=== PATIENT | male | born 1950 | race Caucasian/White ===

== ENCOUNTER → 2017-12-31 09:07 | Outpatient (CLI) | payer MEDICARE, SELFPAY | PROVIDERS: PCP Family Medicine; Visit Provider Family Medicine | DX: R07.9 Chest pain, unspecified (principal); I10 Essential (primary) hypertension | CPT/HCPCS: 93017 ==

== ENCOUNTER → 2018-02-10 10:05 | Outpatient (CLI) | payer MEDICARE, SELFPAY ==
--- NOTE | 2018-02-10 10:09 | CT_ITS ---
CT heart w calcium score INDICATION: Chest pain ITS.REASON: abnormal stress test ORDERING PHYSICIAN: Magdi Michaud MD PATIENT AGE: 67 years COMPARISON: None TECHNIQUE: Axial images are obtained without contrast. Sagittal and coronal reformatted images are reviewed as well. All CT scans at the facility use one or more dose reduction, viz: automated exposure control, ma/kV adjustment per patient size (including targeted exams where dose is matched to indication, i.e. head), or iterative reconstruction technique. FINDINGS: The coronary artery calcium score is 0 indicating low cardiovascular disease risk Incidental note is made of a left adrenal nodule which measures 3 x 2.7 cm. The nodule is indeterminate based on its density of nearly 13 Hounsfield units. If there are any old CTs available is suggest that they be compared treated no old CTs are available then follow-up exam without and with contrast or peripherally MRI may be of further value to determine if the nodule represents an adenoma. IMPRESSION: 1. Coronary artery calcium score is 0 with low cardiovascular disease risk. 2. Indeterminate left adrenal nodule at 3 x 2.7 cm
--- NOTE | 2018-02-10 10:09 | CA_ITS ---
PROCEDURE: 2-D M-mode and color Doppler study INDICATIONS FOR THE TEST: Chest pain + COPD Heart Murmur Tobacco Smoking Palpitations Fatigue Syncope Edema Hypertension Diabetes Mellitus Rheumatic Fever SOB BARTON Obesity Hyperlipidemia Family History HD Additional History PATIENT INFORMATION HEIGHT: 70 WEIGHT:162 GENDER: M B/P:155/58 2-D/M-MODE INTERPRETATION: 2-D MEASUREMENTS OBSERVED VALUES IN CMS Right Ventricular Dimension (RVDd) 2.5 Interventricular Septum (Thickness)(IVsd) 1.1 Left Ventricular Internal Dimensions(LVIDd) 5.5 Left Ventricular Posterior Wall (Thickness)(LVPWd) 0.9 Aortic Root 2.8 Aortic Cusp Separation 2.1 Left Atrial Dimensions (LAD) 3.7 2D 1. Left atrium is normal size, left ventricle is normal size, there is no concentric left ventricular hypertrophy, visually estimated ejection fraction 55% with no obvious regional wall motion abnormality. 2. The right atrium and right ventricle are normal size and contractility. 3. The aortic valve is minimally thickened and fibrosed. 4. 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 5. The tricuspid valve is grossly normal. 6. The pulmonic valve is poorly visualized. 7. No significant pericardial effusion noted. DOPPLER INTERROGATION: Doppler interrogation of the aortic, mitral and tricuspid valvular presence of mild to moderate mitral and mild tricuspid regurgitation, tricuspid regurgitation jet velocity is insufficient for calculation of the right ventricular systolic pressure, diastolic parameters are inconclusive. CONCLUSION: 1. Normal left ventricular size, preserved left ventricular systolic function, visually estimated ejection fraction 55% with no obvious regional wall motion abnormality, diastolic parameters are inconclusive. 2. 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 Mild tricuspid regurgitation 4. No significant pericardial effusion noted.
== END ==
PROVIDERS: PCP Family Medicine; Visit Provider Internal Medicine
DX: R07.9 Chest pain, unspecified (principal); R94.39 Abnormal result of other cardiovascular function study; R00.1 Bradycardia, unspecified
CPT/HCPCS: 75571; 93306

== ENCOUNTER → 2018-02-17 10:49 | Outpatient (CLI) | payer MEDICARE, SELFPAY ==
[2018-02-17 13:45] LABS: Anion Gap 11.6 mEq/L (5-15); Blood Urea Nitrogen 15 mg/dL (7-18); Carbon Dioxide 30 mmol/L (21.0-32.0); Chloride 107 mmol/L (98-107); Creatinine,Serum 1.16 mg/dL (0.70-1.30); Estimated Glomerular Filt Rate 63 ml/min (>60); GFR (African American) 76 ML/MIN (>60); Glucose 101 mg/dL (74-106); Potassium 4.6 mmoL/L (3.5-5.1); Sodium 144 mmol/L (136-145)
== END ==
PROVIDERS: PCP Family Medicine; Visit Provider Internal Medicine
DX: I10 Essential (primary) hypertension (principal); E27.9 Disorder of adrenal gland, unspecified; I34.0 Nonrheumatic mitral (valve) insufficiency
CPT/HCPCS: 36415; 80048; 82088

== ENCOUNTER → 2018-02-26 10:04 | Outpatient (CLI) | payer MEDICARE, SELFPAY ==
--- NOTE | 2018-02-26 10:09 | CT_ITS ---
CT abdomen wo/w con CLINICAL INDICATION: Possible adrenal tumor. Left adrenal mass seen on recent CT scan ITS.REASON: adrenal nodule ORDERING PHYSICIAN: Magdi Michaud MD PATIENT AGE: 67 years COMPARISON: None TECHNIQUE: Axial images obtained without and with contrast. Unenhanced exam as well as 60 seconds and 15 minute delayed images are obtained following contrast administration Axial images obtained with sagittal and coronal reformats. All CT scans at the facility use one or more dose reduction, viz: automated exposure control, ma/kV adjustment per patient size (including targeted exams where dose is matched to indication, i.e. head), or iterative reconstruction technique. PROCEDURE: Oral Contrast: None IV Contrast: 75 mL of Isovue-370.. FINDINGS: 3.6 x 3 cm left adrenal mass is present. Unenhanced density ranges from -3-8 Hounsfield units. There is no significant enhancement on the immediate and delayed images. The right adrenal gland has an unremarkable appearance. The liver, gallbladder, spleen, pancreas, and kidneys have an unremarkable appearance. No acute bony anomalies. No intestinal obstruction or free air. Unremarkable appendix. IMPRESSION: 3.6 x 3 cm left adrenal mass likely representing an adenoma. Suggest 6 month follow-up unenhanced CT scan.
== END ==
PROVIDERS: PCP Family Medicine; Visit Provider Internal Medicine
DX: E27.9 Disorder of adrenal gland, unspecified (principal); R94.39 Abnormal result of other cardiovascular function study; R00.1 Bradycardia, unspecified; I10 Essential (primary) hypertension
CPT/HCPCS: 74170; Q9967

== ENCOUNTER → 2018-03-27 08:24 | Outpatient (CLI) | payer MEDICARE, SELFPAY ==
--- NOTE | 2018-03-27 08:26 | MR_ITS ---
MR abdomen wo/w con INDICATION: Follow-up left adrenal mass ITS.REASON: adrenal mass with and without contrast ORDERING PHYSICIAN: Magdi Michaud MD PATIENT AGE: 67 years COMPARISON: 02/26/2018 TECHNIQUE: Multiplanar multiecho sequences performed without and with contrast. In and out of phase imaging performed. FINDINGS: 3.1 x 2.8 cm left adrenal nodule once again noted. This is isointense on the T1-weighted images and hyperintense on T2-weighted images. There is little if any contrast enhancement. The out of phase images show slight signal dropout.. This along with the fact that the lesion measures less than 10 Hounsfield units on the unenhanced CT scan is consistent with an adrenal adenoma. IMPRESSION: Left adrenal lesion is felt to represent an adenoma. Suggest 6 month follow-up unenhanced CT scan to confirm stability
[2018-03-27 09:20] LABS: Blood Urea Nitrogen 14 mg/dL (7-18); Creatinine,Serum 1.07 mg/dL (0.70-1.30); Estimated Glomerular Filt Rate 69 ml/min (>60); GFR (African American) 84 ML/MIN (>60)
== END ==
PROVIDERS: PCP Family Medicine; Visit Provider Internal Medicine
DX: E27.9 Disorder of adrenal gland, unspecified (principal); I10 Essential (primary) hypertension; I34.0 Nonrheumatic mitral (valve) insufficiency
CPT/HCPCS: 36415; 74183; 82565; 84520; A9576

== ENCOUNTER → 2019-04-06 15:02 | Outpatient (CLI) | payer MEDICARE, SELFPAY ==
--- NOTE | 2019-04-06 15:04 | CA_ITS ---
[facility] RADIOLOGICAL CONSULTATION Patient Name : Kong Perez X-RAY # : [id number] Physician: JAKY THOMAS AGE: 68Y : 1950 00:00:00 ( M ) Exam : CA ECHO DOPPLER COMPLETE ACC # : [id number] Study Date : 04/06/2019 15:14:32 Patient Class : O FINAL REPORT CLINICAL DATA: FINDINGS: TRANSCRIBED REPORT EXAM: Comprehensive 2D, Doppler, and color-flow Echocardiogram Compensation Administrator: Suha Skinner RT(R) Ht: 5 ft 10 in Wt: 150lbs BSA: 1.85 BP: 143/75 mmHg Indications: MVP, HTN, Hyperlipidemia 2D Dimensions Aortic Root 2.60 cm M: 3.1 - 3.7 Left Atrium 3.50 cm M: 3.0 - 4.0 LVOT 2.02 cm (M/F) 1.5-2.5 M-Mode Dimensions RVDd 1.88 cm (0.9-2.6) LVDd 4.30 cm (3.5-5.7) LVDs 3.06 cm (3.5-5.7) IVSd 1.28 cm (0.6-1.1) PWd 1.01 cm (0.6-1.1) EF (Teich) 55.80% FS 28.80% EDV (Teich) 83.10 mL ESV (Teich) 36.70 mL LV Diastology E/A Ratio 1.23 Mitral Valve MV A Velocity 71.00 (40-130 cm/s) Electronically signed by : IMPRESSION: Dictated by at Transcribed by at
== END ==
PROVIDERS: PCP Family Medicine; Visit Provider Internal Medicine
DX: I10 Essential (primary) hypertension (principal); I34.1 Nonrheumatic mitral (valve) prolapse
CPT/HCPCS: 93306

== ENCOUNTER → 2019-12-20 08:06 | Outpatient (CLI) | payer MEDICARE, SELFPAY ==
[2019-12-20 10:02] LABS: Blood Urea Nitrogen 18 mg/dl (9-20); Estimated Glomerular Filt Rate 67 ml/min (>60); GFR (African American) 81 ML/MIN (>60)
== END ==
PROVIDERS: Visit Provider Internal Medicine Cardiovascular Disease
DX: E27.9 Disorder of adrenal gland, unspecified (principal); E78.5 Hyperlipidemia, unspecified; I10 Essential (primary) hypertension; I34.1 Nonrheumatic mitral (valve) prolapse; R07.9 Chest pain, unspecified
CPT/HCPCS: 36415; 82565; 84520

== ENCOUNTER → 2019-12-21 09:30 | Outpatient (CLI) | payer MEDICARE, SELFPAY ==
--- NOTE | 2019-12-21 09:31 | CT_ITS ---
PROCEDURE: CT ABDOMEN WO/W CON CLINICAL HISTORY: lesion of adrenal gland Follow-up adrenal lesion, left adrenal nodule COMPARISON: ABDWW CT abdomen wo/w con from 02/26/2018 TECHNIQUE: 75 mL Optiray 350 IV Axial images obtained with sagittal and coronal reformats. All CT scans at the facility use one or more dose reduction, viz: automated exposure control, ma/kV adjustment per patient size (including targeted exams where dose is matched to indication, i.e. head), or iterative reconstruction technique. FINDINGS: Pre and post enhanced images are obtained Left adrenal nodule is once again noted at 2.5 cm. Unenhanced density is 4 Hounsfield units with mediate post enhanced density 6 Hounsfield units and 15 minutes delayed density 16 Hounsfield units. There has been overall no significant change since 02/26/2018 consistent with an adrenal adenoma. The right adrenal gland has an unremarkable appearance. The liver, pancreas, gallbladder, and kidneys have an unremarkable appearance. On the most superior post enhanced images there is a 4 mm area of decreased attenuation of the spleen posteriorly nonspecific. No acute bony findings. IMPRESSION: No change left adrenal nodule consistent with an adenoma Dictated by: Grover Rodriguez MD 12/22/2019 11:26 Electronically signed by Grover Rodriguez MD in [place] 12/22/2019 11:26
== END ==
PROVIDERS: PCP Family Medicine; Visit Provider Urology
DX: E27.9 Disorder of adrenal gland, unspecified (principal); E78.2 Mixed hyperlipidemia; I10 Essential (primary) hypertension; I34.1 Nonrheumatic mitral (valve) prolapse; R07.9 Chest pain, unspecified
CPT/HCPCS: 74170; Q9967

== ENCOUNTER → 2020-12-21 12:47 | Outpatient (CLI) | payer MEDICARE, SELFPAY | PROVIDERS: PCP Family Medicine; Visit Provider Urology | DX: E27.9 Disorder of adrenal gland, unspecified (principal); E78.2 Mixed hyperlipidemia; I10 Essential (primary) hypertension; I34.1 Nonrheumatic mitral (valve) prolapse | CPT/HCPCS: 93306 ==

== ENCOUNTER → 2021-06-19 09:01 | Outpatient (CLI) | payer MEDICARE, SELFPAY ==
--- NOTE | 2021-06-19 09:01 | CT_ITS ---
FINAL REPORT CLINICAL HISTORY: left adrenal nodule follow up FINDINGS: The lung bases are clear. The liver is normal in size and attenuation. The spleen is unremarkable. There is a 2.4 x 2.2 cm left adrenal nodule. This nodule demonstrates 8 Hounsfield units pre-contrast, 13 Hounsfield units on postcontrast imaging and 20 Hounsfield units on delayed imaging. This is indeterminate based on CT criteria. The pancreas is unremarkable. The kidneys enhance appropriately. Precontrast images demonstrate no nephrolithiasis. IMPRESSION: Indeterminate left adrenal nodule. Recommend follow-up CT to document stability or an MRI with in and out of phase imaging. Reviewed, Interpreted and Dictated by Jeremy Garnett MD Transcribed by Kyle Gama Authenticated by Jeremy Garnett MD on 06/19/2021 12:13:42 PM [facility]
[2021-06-19 09:26] LABS: Blood Urea Nitrogen 16 mg/dl (9-20); Estimated Glomerular Filt Rate 67 ml/min (>60); GFR (African American) 81 ML/MIN (>60)
== END ==
PROVIDERS: PCP Family Medicine; Visit Provider Urology
DX: E27.9 Disorder of adrenal gland, unspecified (principal)
CPT/HCPCS: 36415; 74178; 82565; 84520; Q9967

== ENCOUNTER → 2023-01-22 09:26 | Outpatient (CLI) | payer MEDICARE, SELFPAY ==
--- NOTE | 2023-01-22 09:30 | CA_ITS ---
APPROVED REPORT EXAM: Comprehensive 2D, Doppler, and color-flow Echocardiogram Owner Oral Surgeon: Violet Arguelles CRT Ht: 5 ft 10 in Wt: 157lbs BSA: 1.88 BP: 142/88 mmHg Indications: MVP, BRADYCARDIA, HTN, HLD, SOB 2D Dimensions LVOT 1.93 cm (M/F) 1.5-2.5 LA Volume 34.20 mL LA Volume Index 18.204332 mL/m2 (M/F) 16-34 M-Mode Dimensions RVDd 2.79 cm (0.9-2.6) LA Diam 3.34 cm (1.9-4.0) LVDd 4.79 cm (3.5-5.7) Ao Diam 3.30 cm (2.0-3.7) LVDs 3.39 cm (3.5-5.7) IVSd 1.18 cm (0.6-1.1) PWd 0.96 cm (0.6-1.1) EF (Teich) 56.00% FS 29.20% EDV (Teich) 107.00 mL TAPSE 2.74 (<1.7) ESV (Teich) 47.10 mL LV Diastology E Decel Time 177.00 (160-240 msec) E/A Ratio 0.68 MED E' 8.60 (< 7 cm/sec) MED A' 13.00 cm/s E'/MED E' Ratio 7.78 (>14) LAT E' 9.30 (<10 cm/sec) LAT A' 10.00 cm/s E/LAT E' Ratio 7.19 (>14) Aortic Valve LVOT Max 161.00 (70-110 cm/s) LVOT VTI 35.53 cm AoV Peak Jaret. 196.00 (50-130 cm/s) AO Peak GR. 15.40 mmHg AO Mean GR. 9.20 (<5 mmHg) AO VTI 40.86 (18-25 cm) JASMINA (VTI) 2.54 (2.5-4.5 cm2) Mitral Valve MV A Velocity 98.00 (40-130 cm/s) E/A Ratio 0.68 MV Decel. Time 177.00 (160-240 ms) Tricuspid Valve TR P. Velocity 263.00 cm/s RAP Estimate 10.00 mmHg RVSP 37.80 mmHg Left Ventricle The left ventricle is normal size. The left ventricular systolic function is normal. The left ventricular ejection fraction is within the normal range. There is normal left ventricular wall thickness. There is no LVOT obstruction at rest. There is normal LV segmental wall motion. Transmitral Doppler flow pattern suggests impaired LV relaxation. LVEF is 65%. Right Ventricle The right ventricle is mildly dilated. The right ventricular systolic function is normal. Atria The left atrium size is normal. The right atrium size is normal. There is no Doppler evidence of interatrial shunt. Aortic Valve The aortic valve leaflets are mildly thickened. There is no aortic valvular stenosis. No aortic regurgitation is present. Mitral Valve There is mild prolapse of the posterior MV leaflet. No evidence of mitral annular disjunction (MAD). Chordal systolic anterior motion (TY) is present. No evidence of septal contact. No evidence of mitral valve stenosis. Trace mitral regurgitation. Tricuspid Valve The tricuspid valve leaflets are thin and pliable. Trace tricuspid regurgitation. RVSP is normal. Pulmonic Valve The pulmonary valve is normal in structure. Trace pulmonic regurgitation. Great Vessels The aortic root is normal in size. The visualized segment of the ascending aorta is normal in size. IVC is normal in size and collapses >50% with inspiration. Pericardium There is no pericardial effusion. Other Information Study Quality: Adequate Conclusion Normal biventricular systolic function. Mild RV dilation. Mild posterior MVP. No evidence of mitral annular disjunction (MAD). Chordal systolic anterior motion (TY) is present. No evidence of septal contact. Electronically signed by : Marli Tineo, 01/23/2023 19:06:14
== END ==
PROVIDERS: PCP Family Medicine; Visit Provider Nurse Practitioner Family
DX: R06.02 Shortness of breath (principal); I34.0 Nonrheumatic mitral (valve) insufficiency; R00.1 Bradycardia, unspecified; I10 Essential (primary) hypertension; E78.5 Hyperlipidemia, unspecified
CPT/HCPCS: 93306

== ENCOUNTER → 2023-01-23 10:33 | Outpatient (CLI) | payer MEDICARE, SELFPAY ==
[2023-01-23 10:55] LABS: Basophils % 0.4 % (0.1-2.0); Eosinophils # 0.2 K/mm3 (0.0-0.4); Eosinophils % 2.2 % (0.1-12.0); Hematocrit 45.7 % (42.0-52.0); Hemoglobin 14.4 g/dL (14.1-18.0); Lymphocytes # 1.5 K/mm3 (0.7-4.5); Lymphocytes % 20.5 % (10-50); Mean Corpuscular HGB Conc 31.6 g/dL (31.8-35.4); Mean Corpuscular Hemoglobin 30.7 pg (27.0-31.2); Mean Platelet Volume 8.1 fl (7.4-10.4); Monocytes # 0.4 K/mm3 (0.1-1.0); Monocytes % 5.5 % (1.7-9.3); Neutrophils # 5.2 K/mm3 (1.8-7.8); Neutrophils % 71.4 % (37.0-80.0); Platelet Count 259 K/mm3 (142-424); Red Blood Count 4.71 M/mm3 (4.60-6.20); Red Cell Distribution Width 14.1 % (11.5-17.5); White Blood Count 7.3 K/mm3 (4.8-10.8)
[2023-01-23 11:26] LABS: Chloride 103 mmol/L (98-107)
[2023-01-23 11:27] LABS: Potassium 4.8 mmoL/L (3.5-5.1); Sodium 140 mmol/L (136-145)
[2023-01-23 11:29] LABS: Alanine Aminotransferase 24 U/L (12-78); Alkaline Phosphatase 72 U/L (38-126); Anion Gap 11.8 mEq/L (5-15); Aspartate Amino Transferase 29 U/L (17-59); Bilirubin,Direct 0.2 mg/dl (0.0-0.4); Bilirubin,Indirect 0.6 mg/dL (0.0-0.9); Bilirubin,Total 0.8 mg/dl (0.2-1.3); Bilirubin,Unconjugated 0.6 mg/dL (0.0-1.1); Blood Urea Nitrogen 19 mg/dl (9-20); Carbon Dioxide 30 mmol/L (22.0-30.0); Cholesterol 154 mg/dl (140-200); Estimated Glomerular Filt Rate 60 ml/min (>60); GFR (African American) 72 ML/MIN (>60); Triglycerides 181 mg/dl (30-150); VLDL Cholesterol 36 mg/dL (0-40)
[2023-01-23 11:30] LABS: Albumin Level 3.9 g/dl (3.5-5.0); Calcium 9.7 mg/dl (8.4-10.2); Chol/HDL Ratio 4.2 (1-3.5); Glucose 96 mg/dl (74-100); HDL Cholesterol 37 mg/dl (40-60); Total Protein,Serum 6.7 g/dl (6.3-8.2)
[2023-01-23 11:41] LABS: Direct LDL Cholesterol 75.96 mg/dL (100-129)
[2023-01-23 11:50] LABS: Free T4 (Free Thyroxine) 0.74 ng/dl (0.78-2.19)
[2023-01-23 12:01] LABS: Thyroid Stimulating Hormone 1.25 uIU/mL (0.465-4.68)
== END ==
PROVIDERS: PCP Family Medicine; Visit Provider Nurse Practitioner
DX: E78.5 Hyperlipidemia, unspecified (principal); I34.1 Nonrheumatic mitral (valve) prolapse; I63.9 Cerebral infarction, unspecified; E11.9 Type 2 diabetes mellitus without complications; R06.00 Dyspnea, unspecified; I11.9 Hypertensive heart disease without heart failure
CPT/HCPCS: 36415; 80048; 80061; 80076; 84439; 84443; 85025

== ENCOUNTER 2024-06-27 23:27 | Emergency (ER) | payer MEDICARE, SELFPAY ==
[2024-06-27 23:35] VITALS: BP 190/90; PULSE 65; RESP 20; TEMP 36.6; O2SAT 94; BMI 25.1
--- NOTE | 2024-06-27 23:37 | XR_ITS ---
PROCEDURE INFORMATION: Exam: XR Chest Exam date and time: 06/27/2024 11:37 PM Age: 73 years old Clinical indication: Cough and shortness of breath; Additional info: Covid, symptoms x7 days, persistent cough TECHNIQUE: Imaging protocol: Radiologic exam of the chest. Views: 2 views. COMPARISON: HEARTWCAL CT heart w calcium score 02/10/2018 10:32 AM FINDINGS: Lungs: Unremarkable. No consolidation. Pleural spaces: Unremarkable. No pleural effusion. No pneumothorax. Heart/Mediastinum: Unremarkable. No cardiomegaly. Bones/joints: Unremarkable. IMPRESSION: No acute findings.
--- NOTE | 2024-06-28 | HMH.EDGENADL ---
Discharge Plan Disposition Patient Disposition: Home, Self-Care Prescriptions Prescriptions: No Action atorvastatin 10 mg tablet See Rx Instructions .ROUTE .COMPLEX Qty: 90 3RF Dose Instruction: TAKE ONE TABLET BY MOUTH ONCE A DAY FOR HIGH CHOLESTEROL Rx Instructions: TAKE ONE TABLET BY MOUTH ONCE A DAY FOR HIGH CHOLESTEROL amlodipine-benazepril 5-20 mg capsule See Rx Instructions .ROUTE .COMPLEX Qty: 90 3RF Dose Instruction: TAKE ONE CAPSULE BY MOUTH ONCE A DAY Rx Instructions: TAKE ONE CAPSULE BY MOUTH ONCE A DAY Referrals Follow up/Referrals: Analilia Frankel MD [Primary Care Provider] - See instructions Activity Restrictions/Add. Instructions Additional Instructions/Restrictions: Please follow-up with your primary care provider. Please return to the emergency department if you develop any new or worsening symptoms or become concerned for your health. Clinical Impressions Clinical Impression: COVID-19, Cough Print Language Print Language: Cymraes Discharge ED Provider: Gregorio Aleman General Adult HPI General Chief complaint: Upper Respiratory Infection Stated complaint: Covid +, SOA Time Seen by Provider: 06/27/24 23:30 Mode of Arrival: Ambulatory Source of Information: Patient Limitations: No Limitations Description of Symptoms (Recalled from ER Triage Doc. by RN): Pt states when he coughs he cannot catch his breath Has known COVID History of Present Illness HPI narrative: 73-year-old male with history of hypertension, no history of smoking or underlying lung disease, on day 7 of symptoms with COVID presents for persistent cough. He reports it is intermittently productive of yellow sputum. Denies any fever at home. He presents primarily because he has been having intermittent coughing fits that take his breath away. Denies any other symptoms. Related Data Previous Rx's ?Medication ?Instructions ?Recorded atorvastatin 10 mg tablet See Rx Instructions .Route 09/09/23 .COMPLEX #90 tabs amlodipine 5 mg-benazepril 20 mg See Rx Instructions .Route 06/04/24 capsule .COMPLEX #90 caps Allergies Allergy/AdvReac Type Severity Reaction Status Date / Time ampicillin Allergy Mild Verified 01/26/24 08:47 [facility] Disclaimer: The information contained in this section may have been updated after the patient was seen, as this information can be updated by other users. Medical History Lesion of adrenal gland Social History Smoking Status: Never smoker alcohol intake: never substance use type: denies use current occupational status: retired Travel in the last 8 weeks: Inside the [place] household members: spouse Have you lived/traveled outside US in past 30 days?: No Contact w/someone who lives/traveled outside US past 30 days?: No Exposure to someone with infectious disease in past 14 days?: Yes Do you have a fever (greater than 100.4 F or 38 C)?: No Have you tested positive for COVID-19: Yes Exposed to someone with COVID-19 in past 14 days?: Yes Do you have a sore throat?: No Do you have a cough?: Yes Do you have any weakness?: No Do you have any diarrhea?: No Are you experiencing any unusual bleeding?: No Do you have any muscle aches/pain?: No Do you have any abdominal pain?: No Are you experiencing loss of taste or smell?: No Other Medical History Have you received the Flu Vaccine for this season: No Have you received the Pneumonia Vaccine: No ROS Obtained: Yes All systems reviewed & no additional complaints except as documented Physical Exam General General appearance: alert and in no apparent distress Head Head exam: atraumatic and normocephalic Eye Eye exam: Present normal appearance, PERRL and EOMI ENT ENT exam: Present normal oropharynx and normal external ear exam Neck Neck exam: Present normal inspection and full ROM Chest Chest inspection: Present normal inspection and symmetric chest wall rise; Absent tenderness Respiratory Respiratory exam: Present normal lung sounds bilaterally; Absent respiratory distress Cardiovascular Cardiovascular exam: Present regular rate and normal rhythm Abdominal Exam Abdominal exam: Present soft; Absent distention, tenderness or guarding Extremities Exam Extremities exam: Present normal inspection; Absent edema or joint swelling Back Exam Back exam: Present normal inspection; Absent tenderness Neurological Exam Neurological exam: Present alert and oriented X3; Absent motor sensory deficit Psychiatric Psychiatric exam: Present normal affect and normal mood Skin Skin exam: Present warm, dry and normal color Lymphatic Lymphatic Findings: no adenopathy Medical Decision Making Medical Records Medical records reviewed: Yes I reviewed the patient's medical records. Screening: Per USPSTF and CDC recommendations, given the prevalence of disease in our region, it is our hospital?s policy to screen for HIV and viral Hepatitis for all patients aged 18 and over and those with ongoing risk factors. Reinaldo Inquiry Pt receiving controlled substance: No Reinaldo was queried for this patient: No Vital Signs: 06/27/24 23:35 06/28/24 00:02 Temperature 97.8 F 98.2 F Temperature Source Oral Pulse Rate 65 Pulse Rate [Right Brachial] 65 Respiratory Rate 20 20 Blood Pressure 179/93 H Blood Pressure [Right Arm] 190/90 H Blood Pressure Mean [Right Arm] 123 Blood Pressure Source [Right Arm] Automatic Cuff Blood Pressure Position [Right Arm] Sitting 02 Sat by Pulse Oximetry 94 L Oxygen Delivery Method Room Air Room Air Lab Data Lab results reviewed: Yes I reviewed the patient's lab results. Orders (Tests/Meds): ORDERS Category Date Time Status CXR 2 view (NOT portable) [XR chest 2V] Stat Exams 06/27/24 23:37 Completed Medical Decision Narrative: 73-year-old male with history of hypertension hyperlipidemia, recent COVID diagnosis on day 7 of symptoms presents for persistent cough. History was obtained via interactive discussion with patient. On arrival, patient is [afebrile, hemodynamically stable, satting appropriately, alert, oriented x4, GCS 15], moving all extremities spontaneously. Full physical exam performed and significant for clear lungs bilaterally Differential includes but is not limited to COVID, URI, secondary bacterial pneumonia. Workup includes 2 view chest x-ray. On my interpretation, chest x-ray shows no evidence of secondary atrial pneumonia. No pneumothorax or other acute pathology. Interactive and repeated discussion was had with patient regarding his presentation, symptoms, symptomatic care etc. No evidence of bacterial infection at this time, even during coughing fit in the ER his oxygen saturations never dropped. No evidence of emergent pathology at this time, though he could still develop a secondary infection. Recommended he continue symptomatic care at home and follow-up with his PCP or return to the ER with worsening symptoms. Procedures Risk/Benefits of Procedure(s) Were Explained: Yes Critical Care Critical Care Time Critical Care Time: No
[2024-06-28 00:02] VITALS: BP 179/93; PULSE 65; RESP 20; TEMP 36.8; O2SAT 97
== END 2024-06-28 00:05 | disposition home or self-care (01) ==
PROVIDERS: Emergency Provider Emergency Medicine; PCP Family Medicine
DX: U07.1 COVID-19 (principal); R06.02 Shortness of breath; R05.8 Other specified cough
CPT/HCPCS: 71046; 99283

== ENCOUNTER 2025-01-14 07:35 | Outpatient (CLI) | payer MEDICARE, SELFPAY ==
--- OUTSIDE RECORDS SUMMARY | 2025-01-14 07:37 | XMS_ITS | Clinical Summary ---
Author Organization [facility] Address [address] [place] [address] Care Team Providers Care Corporate Development Manager Name Role Phone Ty Frankel MD Primary Care Provider [phone] Social History Tobacco Use Types Packs/Day Years Used Date Smoking Tobacco: Never Assessed Sex and Gender Information Value Date Recorded Sex Assigned at Not on file Legal Sex Male 7:34 PM EDT Gender Identity Not on file Sexual Orientation Not on file Plan of Treatment Health Maintenance Due Date Last Done Comments [facility]-Depression Screening 1950 [facility]-Hepatitis C Screening 1950 [facility]-Medicare Annual Wellness (AWV) 1950 [facility]-/Child/Adol SDOH Screenings 1950 [facility]- SDOH Screenings 1970 [facility]-Adult SDOH Screenings 1970 CT Colonography 1997 Colonoscopy 1997 FIT-DNA 1997 FIT 1997 FOBT 1997 Sigmoidoscopy 1997 [facility]-Colorectal Cancer Screening 1997 [facility]-Pneumococcal Vaccine: 50 + Years (1 of 1 - PCV) 2002 [facility]-Zoster Vaccines (1 of 2) 2002 CRT-IQRYM-15 Vaccine (2 - 20 24-25 season) 2024 09/15/2020 [facility]-Influenza Vaccine (#1) 2025 [facility]-DTaP,Tdap,and Td Vaccine s (2 - Td or Tdap) 01/04/2026 01/05/2016 [facility]-RSV Vaccine: 60+ Years o r (1 - 1-dose 75+ series) 2027 HPV Vaccines Aged Out No longer eligi ble based on patient's age to complete this topic [facility]-HIB Vaccines Aged Out No longer e ligible based on patient's age to complete this topic [facility]-Hepatitis A Vaccines Aged Out No longer eligible based on patient's age to complete this topic [facility]-IPV Vaccines Aged Out No longer e ligible based on patient's age to complete this topic [facility]-Rotavirus Vaccines Aged Out No lo nger eligible based on patient's age to complete this topic Insurance [place]ES [place] [id number] [facility] MEDICARE Member Subscriber Plan / Payer (Ef fective 2019-Present) Name:Kong Scott Relation to Subscriber:Self Name:Kong Scott Payer ID:[id number] (NAIC) Type:Not on file Address: [address] [address] Care Teams Corporate Development Manager Relationship Specialty Start Date End Date Ty Frankel MD [address] [place] [address] #1 #1 JOSE [id number] PCP - General 10/27/20
--- NOTE | 2025-01-14 08:00 | CA_ITS ---
APPROVED REPORT EXAM: Comprehensive 2D, Doppler, and color-flow Echocardiogram Police Inspector: Suha Skinner RT(R) Ht: 5 ft 10 in Wt: 163lbs BSA: 1.91 BP: 151/71 mmHg Indications: Mitral valve prolapse 2D Dimensions LA Volume 25.90 mL LA Volume Index 13.49 mL/m2 (M/F) 16-34 EF AP4 12.80 % GL Strain -16.4 % M-Mode Dimensions RVDd 2.36 cm (0.9-2.6) LA Diam 3.12 cm (1.9-4.0) LVDd 3.93 cm (3.5-5.7) LVDs 2.93 cm (3.5-5.7) IVSd 0.97 cm (0.6-1.1) PWd 0.64 cm (0.6-1.1) EF (Teich) 50.80% FS 25.40% EDV (Teich) 67.10 mL ESV (Teich) 33.00 mL LV Diastology E Decel Time 257 (160-240 msec) E/A Ratio 1.2 Mitral Valve MV E Max Jaret. 86.0 (40-130 cm/s) MV A Velocity 70.0 (40-130 cm/s) E/A Ratio 1.23 MV PHT 75.0 ms Left Ventricle The left ventricle is normal size. Left ventricular systolic function is normal. The left ventricular ejection fraction is within the normal range. There is normal left ventricular wall thickness. There is normal LV segmental wall motion. The left ventricular diastolic function is normal. LVEF is 55% Right Ventricle The right ventricle is normal size. The right ventricular systolic function is normal. Atria The left atrium size is normal. The right atrium size is normal. There is no color Doppler evidence of interatrial shunt. Aortic Valve The aortic valve opens well. There is no hemodynamically significant aortic valvular stenosis. No aortic regurgitation is present. Mitral Valve There is bileaflet mitral prolapse present. No evidence of mitral valve stenosis. Trace mitral regurgitation is present. Tricuspid Valve The tricuspid valve leaflets are thin and pliable. Mild tricuspid regurgitation. RVSP is normal. Pulmonic Valve The pulmonary valve is grossly normal in structure. Trace pulmonic valve regurgitation is present. Great Vessels The aortic root is normal in size. IVC is normal in size and collapses >50% with inspiration. Pericardium There is no pericardial effusion. Other Information Study Quality: Fair Conclusion Normal biventricular systolic function. Bileaflet MV prolapse. No significant MR. Mild TR. Electronically signed by : Marli Tineo MD 01/15/2025 12:15:57
== END 2025-01-14 23:59 | disposition home or self-care (01) ==
LOC: RT 07:35
PROVIDERS: PCP Family Medicine; Visit Provider Physician Assistant
DX: I08.1 Rheumatic disorders of both mitral and tricuspid valves (principal)
CPT/HCPCS: 93306

== ENCOUNTER 2025-01-25 08:58 | Outpatient (CLI) | payer MEDICARE, SELFPAY ==
--- OUTSIDE RECORDS SUMMARY | 2025-01-25 09:00 | XMS_ITS | Clinical Summary ---
Author Organization [facility] Address [address] [place] [address] Care Team Providers Care Pathology Secretary Name Role Phone Ty Frankel MD Primary Care Provider [phone] Social History Tobacco Use Types Packs/Day Years [...] 2002 UKY-Zoster Vaccines (1 of 2) 2002 [id number] Vaccine (2 - 20 24-25 season) 2024 [...] patient's age to complete this topic Insurance JOSE KING [id number] [facility] MEDICARE Care Teams Pathology Secretary Relationship Specialty Start Date End Date Ty Frankel MD [address] [place] [address] #1 #1 JOSE Bull [id number] PCP - General 10/27/20
[2025-01-25 10:14] LABS: Hematocrit 43.3 % (42.0-52.0); Hemoglobin 14.0 g/dL (14.1-18.0); Immature Granulocytes % 0.3 %; Mean Corpuscular HGB Conc 32.3 g/dL (31.8-35.4); Mean Corpuscular Hemoglobin 31.6 pg (27.0-31.2); Mean Corpuscular Volume 97.7 fl (80-94); Nucleated Red Blood Cells % 0 %; Platelet Count 253 K/mm3 (142-424); Red Blood Count 4.43 M/mm3 (4.60-6.20); Red Cell Distribution Width-SD 48.5 fL; White Blood Count 6.1 K/mm3 (4.8-10.8)
[2025-01-25 10:33] LABS: Albumin Level 4.3 g/dl (3.5-5.0); Chloride 103 mmol/L (98-107); Potassium 4.9 mmoL/L (3.5-5.1); Sodium 140 mmol/L (136-145)
[2025-01-25 10:35] LABS: Blood Urea Nitrogen 18 mg/dl (9-20); Creatinine,Serum 1.00 mg/dl (0.66-1.25); Estimated Glomerular Filt Rate 73 ml/min (>60); GFR (African American) 89 ML/MIN (>60)
[2025-01-25 10:36] LABS: Alanine Aminotransferase 22 U/L (12-78); Alkaline Phosphatase 65 U/L (38-126); Anion Gap 11.9 mEq/L (5-15); Aspartate Amino Transferase 30 U/L (17-59); Bilirubin,Direct 0.1 mg/dl (0.0-0.4); Bilirubin,Indirect 1.2 mg/dL (0.0-0.9); Bilirubin,Total 1.3 mg/dl (0.2-1.3); Bilirubin,Unconjugated 1.2 mg/dL (0.0-1.1); Calcium 9.4 mg/dl (8.4-10.2); Carbon Dioxide 30 mmol/L (22.0-30.0); Cholesterol 170 mg/dl (140-200); Glucose 96 mg/dl (74-100); Magnesium 2.2 mg/dl (1.6-2.3); Total Protein,Serum 6.9 g/dl (6.3-8.2); Triglycerides 140 mg/dl (30-150)
[2025-01-25 10:37] LABS: HDL Cholesterol 45 mg/dl (40-60)
[2025-01-25 10:38] LABS: Hemoglobin A1C 6.1 % (4.0-6.0)
[2025-01-25 10:54] LABS: Free T4 (Free Thyroxine) 0.83 ng/dl (0.78-2.19)
[2025-01-25 11:08] LABS: Thyroid Stimulating Hormone 0.94 uIU/mL (0.465-4.68)
== END 2025-01-25 23:59 | disposition home or self-care (01) ==
LOC: LAB 08:58
PROVIDERS: PCP Family Medicine; Visit Provider Nurse Practitioner
DX: E27.9 Disorder of adrenal gland, unspecified (principal); I34.1 Nonrheumatic mitral (valve) prolapse; I10 Essential (primary) hypertension; Z12.5 Encounter for screening for malignant neoplasm of prostate; Z13.1 Encounter for screening for diabetes mellitus
CPT/HCPCS: 36415; 80048; 80061; 80076; 83036; 83735; 84439; 84443; 85025; G0103

== ENCOUNTER 2025-02-08 07:42 | Outpatient (CLI) | payer MEDICARE, SELFPAY ==
--- OUTSIDE RECORDS SUMMARY | 2025-02-08 07:45 | XMS_ITS | Clinical Summary ---
Author Organization [facility] Address [address] [place] [address] Care Team Providers Care Kitchen Utility Associate Name Role Phone Ty Frankel MD Primary Care Provider Social History Tobacco Use Types Packs/Day Years [...] 2002 UKY-Zoster Vaccines (1 of 2) 2002 [id number] Vaccine (2 - 20 24-25 season) 2024 [...] to complete this topic Insurance JOSE KING [id number] [facility] MEDICARE Care Teams Kitchen Utility Associate Relationship Specialty Start Date End Date Ty Frankel MD [address] [place] [address] #1 #1 JOSE Bull [id number] PCP - General 10/27/20
--- NOTE | 2025-02-08 08:00 | CT_ITS ---
FINAL REPORT TECHNIQUE: Pre-and postcontrast axial imaging of the abdomen and pelvis was obtained.This study was performed with techniques to keep radiation doses as low as reasonably achievable, (ALARA). Individualized dose reduction technique using automated exposure control or adjustment of mA and/or kV according to the patient's size were employed. CLINICAL HISTORY: adrenal nodule COMPARISON: 06/19/2021 FINDINGS: The lung bases are clear. The liver is homogeneous. The gallbladder is present. There is a small hypodense lesion in the upper pole of the spleen which is likely benign. Right adrenal gland and pancreas are without acute abnormality. There is a 24 mm nodule in the left adrenal gland which is unchanged in size from 2021. On noncontrast imaging this demonstrates a mean attenuation value of 10 Hounsfield units. On postcontrast imaging this has a mean attenuation value of 18 Hounsfield units and on delayed imaging a mean attenuation value of 8 Hounsfield units. Findings are consistent with adenoma. There are no renal stones or hydronephrosis. No renal mass is identified. GI tract demonstrates no evidence of small bowel obstruction. The appendix is normal. There is diverticulosis without evidence of diverticulitis. Prostate is enlarged. There is a fat-containing left inguinal hernia. There is a small right inguinal hernia containing a loop of small bowel. There is no lymphadenopathy or ascites. No acute osseous abnormality is seen. IMPRESSION: 1. Stable left adrenal adenoma. 2. Right inguinal hernia containing a loop of small bowel without evidence of obstruction. Reviewed, Interpreted and Dictated by Minal Bowie MD Transcribed by Qing Prieto Authenticated and [facility]
[2025-02-08] MEDS: IOPAMIDOL-370 (76%);100ML BOTTLE 75 ML IV (08:06)
[2025-02-08] MEDS: SODIUM CHLORIDE 0.9% 10ML SYR (RAD ONLY) 10 ML IV (08:06)
== END 2025-02-08 23:59 | disposition home or self-care (01) ==
PROVIDERS: PCP Family Medicine; Visit Provider Nurse Practitioner
DX: D35.02 Benign neoplasm of left adrenal gland (principal); K40.90 Unilateral inguinal hernia, without obstruction or gangrene, not specified as recurrent; I34.1 Nonrheumatic mitral (valve) prolapse; I10 Essential (primary) hypertension; Z13.1 Encounter for screening for diabetes mellitus; Z12.5 Encounter for screening for malignant neoplasm of prostate
CPT/HCPCS: 74178; Q9967